=== PATIENT | male | born 1935 | race Caucasian/White ===

== ENCOUNTER → 2017-02-24 | Outpatient (CLI) | payer MEDICARE, BC ==
[~2017-02-24] MED LIST: ASPIRIN PO; LOTREL 10/20 MG1 CAP PO; NEXIUM PO; TOPROL XL PO; ZOCOR PO; [UNRECOGNIZED DRUG - OTHER] PO
--- NOTE | ~2017-02-24 | CR7 ---
[facility] A Service of [facility] & [facility] / [facility] RADIOLOGY TEXT RESULTS PATIENT: LUBA TELLES LOCATION: [facility] : 34 UNIT #: [id number] AGE: [address]: Guanako Bell MD SEX: M ORDER DR: [id number] [facility] [address] [place], [place] [address] [id number] O MR#: [id number] Acc #: [id number] NAME: LUBA TELLES : 1935 SEX: M STUDY DATE/TIME: 02/24/2017 9:21 UNIT: [facility] ROOM: STUDY DESCRIPTION: CR Abdomen Single AP View Attending Physician: Guanako Bell M.D. Referring Physician: Guanako Bell M.D. Ordering Physician: Guanako Bell M.D. Primary Care Physician: Parmjit Alvarez Jr., M.D. MEDICAL IMAGING REPORT This report is preliminary unless electronic signature is present EXAM AP abdomen HISTORY Bilateral renal stones on recent CT 2 weeks ago. FINDINGS AP abdomen demonstrates 2 stones projected over the lower pole right kidney, larger measuring 8 mm, probably unchanged compared to 02/09/2016. There are 2 probable tiny stones projected over the lower pole left kidney measuring 2-3 mm. Evaluation of the kidneys is limited by overlying bowel contents, decreasing sensitivity. Moderate amount of stool throughout the colon and rectum. No bowel dilatation. Dictated by... Marquis Gibson M.D. THIS IS AN ELECTRONICALLY VERIFIED REPORT Marquis Gibson M.D. at 02/25/2017 10:54 PM DFL/pcl TD: 02/25/2017 08:00 JOB #: [id number] MEDICAL IMAGING REPORT Page 1 of 1 COPY
== END | disposition home or self-care (01) ==
LOC: CRAD 09:09
DX: N20.0 Calculus of kidney (principal)
CPT/HCPCS: 74000

== ENCOUNTER → 2017-04-17 | Outpatient (CLI) | payer MEDICARE, BC ==
--- NOTE | ~2017-04-17 | US37 ---
[facility] A Service of [facility] & [facility] RADIOLOGY TEXT RESULTS PATIENT: LUBA TELLES LOCATION: [facility] : 34 UNIT #: [id number] AGE: [address]: Ba Marcano MD SEX: M ORDER DR: [id number] [facility] [address] [place], [place] [address] [id number] O MR#: [id number] Acc #: [id number] NAME: LUBA TELLES. : 1935 SEX: M STUDY DATE/TIME: 04/17/2017 15:13 UNIT: [facility] ROOM: STUDY DESCRIPTION: US Carotid W/Doppler Bilateral Attending Physician: Ba Marcano M.D. Referring Physician: Ba Marcano M.D. Ordering Physician: Ba Marcano M.D. Primary Care Physician: Parmjit Alvarez Jr., M.D. MEDICAL IMAGING REPORT This report is preliminary unless electronic signature is present EXAM Bilateral carotid duplex HISTORY Carotid bruit, dizziness spells FINDINGS Duplex imaging of the carotid arteries was performed. The right common carotid artery is patent with some scattered plaque distally. There is heterogeneous plaque in the right carotid bulb in the origins of the internal and external carotid arteries. Velocity in the right common carotid artery is 118 internal is 176 proximally 122 in the mid portion and 110 distally. External is 174 cm/sec. Right ICA/CCA ratio is 1.6. On the left side the common carotid artery is patent. Mild plaque is seen in the left internal carotid artery origin and external carotid artery origins. Velocity in the left common carotid is 118 internal is 86 and external is 132 cm/sec. Left ICA/CCA ratio is 0.8. Antegrade flow is seen in the right and left vertebral arteries. IMPRESSION 1. Plaque with 50-69% stenosis is seen in the right internal carotid artery. 2. Less than 50% stenosis is seen in the left internal carotid artery. 3. Antegrade flow is seen in the right and left vertebral arteries. Dictated by..Felix Phillips M.D. [facility] A Service of [facility] & [facility] RADIOLOGY TEXT RESULTS PATIENT: LUBA TELLES LOCATION: IV : 34 UNIT #: [id number] AGE: [address]: Ba Marcano MD SEX: M ORDER DR: THIS IS AN ELECTRONICALLY VERIFIED REPORT Ralph Phillips M.D. at 04/23/2017 9:59 AM /ayden TD: 04/19/2017 06:21 JOB #: [id number] MEDICAL IMAGING REPORT Page 1 of 1 COPY
== END | disposition home or self-care (01) ==
LOC: CNIV 14:50
DX: R09.89 Other specified symptoms and signs involving the circulatory and respiratory systems (principal); I65.23 Occlusion and stenosis of bilateral carotid arteries
CPT/HCPCS: 93880